=== PATIENT | male | born 1985 | race Hispanic/Latino ===

== ENCOUNTER 2016-08-20 09:16 | Emergency (ER) | payer SELFPAY ==
[2016-08-20 09:53] VITALS: BP 125/76
--- NOTE | 2016-08-20 10:41 | ERNOTE ---
Psychological HPI - Date Date of Service: 08/20/16 - General Chief Complaint: Psychiatric Problem Source: Reports: patient, police Exam Limitations: Reports: intoxication - Immun/Allergies/Home Medications Allergies/Adverse Reactions: Allergies No Known Allergies Allergy (Unverified 08/20/16 09:43) Home Medications: HOME MEDICATIONS NK [No Home Medication] 08/20/16 [Last Taken Unknown] - History of Present Illness Narrative: Works in [employer]. Has a house in [place] for last 14 years. Has been for 12 years. Is getting . He drove home for the 4th weekend to see his kids. Says his kids don't want to see him, got drunk on beer last night, went to drive back to [place] this am but got pulled over for erratic and unsafe driving and charged with DUI. He did think of suicide while at home. He has a gun, had the clip in his pocket but left the gun at home. He says he couldn't do that. He is a [employer] and does not believe in suicide. No psych history. No prior suicide attempts. He denies any drug usage. [employer] stated that his blood alcohol was 147 per breathalyzer. He has been cooperative. Time Seen by Provider: 08/20/16 09:38 Arrived by: Reports: police Intent: Reports: other Mechanism: Reports: other - gun Situational Problems: Reports: spouse, other - family Associated Symptoms: Reports: angry, frustrated, suicidal thoughts, specific plan. Denies: confused, hallucinating "Rescue Factor" How did act come to attention?: pulled over by police Prior Treament: Denies: recently seen, treated by physician, recently hospitalized, similar symptoms before Review of Systems - Review of Systems Constitutional: Present: no symptoms reported ENT: Present: no symptoms reported Respiratory: Present: no symptoms reported, orthopnea Gastrointestinal/Abdominal: Present: no symptoms reported Genitourinary: Present: no symptoms reported Neurological: Present: no symptoms reported - Patient's Past Medical History Patient History - Medical: No pertinent hx Patient History - Cardiac/Respiratory: No pertinent hx Patient History - Cancer: No Hx of Cancer Patient History - Surgical Procedures: No surgical history Patient History - Other: None - Social History Living Situations: home Abuse History: No History of abuse Psych History: No pertinent hx Have you smoked in the past 12 months: Yes Patient requests Smoking Cessation Consult: No Initiate information on Smoking Cessation: No Alcohol Use: occasionally Drug Use: none - Immunizations Immunizations Up to Date: No Hx Pneumococcal Vaccination: No History of Influenza Vaccine: No Physical Exam - Physical Exam General Appearance: Present: wd/wn, alert, no apparent distress Respiratory: Present: no respiratory distress Cardiovascular/Chest: Present: regular rate, rhythm Neurological Exam: Present: alert, oriented, normal mood/affect, other - denies suicidal or homicidal ideation. denies hallucinations. Skin Exam: Present: normal color ED Progress - Vital Signs Patient's Vital Signs:: I have reviewed the patient's vital signs. Vital Signs: Vital Signs 08/20/16 09:31 Temperature 37.3 C Pulse Rate 102 H Respiratory 15 Rate Blood Pressure 125/76 O2 Sat by Pulse 95 Oximetry - Progress/Reassessment Chief Complaint: Psychiatric Problem Plan - Plan Plan: Released to correction. Is not suicidal. Intoxicated but quite coherent, rational. Has lots to live for. Has many friends in [place] that he can get help from. Planning on driving to [place]. Continuing job. Departure Clinical Impression: Alcohol intoxication, Suicidal ideation - Departure Disposition: Half-Way Condition: Good Instructions: Alcohol Intoxication Additional Instructions: Follow up with your doctor or any ER if you have any recurrence of thoughts of self-injury.
== END 2016-08-20 10:23 ==
LOC: ER 09:16
DX: F10.129 Alcohol abuse with intoxication, unspecified (principal); Z72.0 Tobacco use